=== PATIENT | female | born 1985 | race Caucasian/White ===

== ENCOUNTER 2023-03-16 13:28 | Emergency (ER) | payer MEDICARE, SELFPAY ==
[2023-03-16 13:39] VITALS: BP 131/91
--- NOTE | 2023-03-16 16:02 | ED.GENMED ---
History of Present Illness
General
Chief Complaint: Alcohol Problem
Source: patient
Exam Limitations: none
Time Seen by Provider: 03/16/23 15:40
Travel History
Have you had any contact with someone who has COVID-19?: No
Do you have any symptoms of coronavirus? Fever > 100 degrees, chills, cough, shortness of breath, sore throat, loss of taste or smell, muscle aches, or headache?: No
History of Present Illness
History of Present Illness:
37-year-old female presents with request of getting help getting set up with alcohol rehab. She drinks beer daily. She states she has large amount of alcohol on a daily basis. She denies any other drug use. She denies thoughts of harming
herself. She does states she is homeless currently. No other complaints at this time
Past History
Past History
ED Past Medical History: Psychiatric (IVDA, on Suboxone)
ED Past Surgical History: Tonsilectomy
Social History
Tobacco: Smoker
Alcohol: None
Drug: Marijuana
Personal: Single
Living: alone
Employment: Employed
Phy Exam
Physical Exam
Physical Exam:
General: Well-appearing female no acute respiratory distress
HEENT: Normocephalic atraumatic neck is supple
Heart: Regular rate and rhythm no murmurs
Lungs: Clear to auscultation bilaterally no wheezing
Extremities: No cyanosis or edema
Scores
Withdrawal Assessment of Alcohol
Withdrawal Assessment Completed?: No
Course
Orders/Labs/Results
Orders:
Orders
03/16/23 16:37
Complete Blood Count/With Diff Urgent
Comprehensive Metabolic Panel Urgent
03/16/23 19:12
Fentanyl, Urine Urgent
Urine Drug Abuse Screen Urgent
Date Specimen was Collected: 03/16/23
Time Specimen was Collected: 16:46
Abnormal Lab Results
03/16/23 03/16/23
16:37 19:12
MCH 32.4 H pg
(27.0-31.0)
Abs Immat Gran (auto) 0.1 H 10^3/uL
(0-0.05)
Absolute Neuts (auto) 7.1 H 10^3/uL
(1.4-6.5)
Absolute Monos (auto) 0.9 H 10^3/uL
(0.1-0.6)
Immature Gran % 0.7 H %
(0-0.5)
AST 72 H U/L
(14-36)
ALT 115 H U/L
(0-35)
Ur Amphetamines Screen Positive H
(Negative)
U Marijuana (THC) Screen Positive H
(Negative)
03/16/23 16:37
03/16/23 16:37
Vital Signs
Initial and Last Documented VS:
Initial Vital Signs
Temp Pulse Resp BP Pulse Ox
98.6 F 90 18 131/91 98
03/16/23 13:39 03/16/23 13:39 03/16/23 13:39 03/16/23 13:39 03/16/23 13:39
Last Documented Vital Signs
Temp Pulse Resp BP Pulse Ox
99.3 F 100 16 129/85 97
03/16/23 16:25 03/16/23 19:12 03/16/23 19:12 03/16/23 19:12 03/16/23 19:12
*Critical Care Note
Total Time (30-74mins, 75-104mins- exclusive of procedures): Not Applicable
Update Note
Update Note:
Patient requesting evaluation for alcohol rehab. She is never withdrawn from alcohol in the past. She has attended alcohol rehab inpatient and outpatient in the past. Patient labs pending will check drug screen. [facility] contacted
ED Attending Note
-
Portions of this chart may have been created with voice recognition software.� Occasional wrong word or��sound alike� substitutions may have occurred due to the inherent limitations of voice recognition software.
Discharge Plan
Departure
Patient Disposition: Acute Rehab Facility
Date of Disposition: 03/16/23
Time of Disposition: 18:12
Discharge Problem:
Alcohol abuse
Instructions: Alcohol Use Disorder (DC)
Prescriptions:
No Action
penicillin V potassium 250 MG tablet
500 mg PO Q12 13 Days Qty: 26 0RF
sulfamethoxazole-trimethoprim 1 TABLET tablet
1 tab PO BID 13 Days Qty: 26 0RF
nicotine 14 MG patch 24 hour
14 mg transdermal DAILY 30 Days Qty: 30 0RF
methylprednisolone [Medrol (John)] 4 MG tablets,dose pack
4 tab PO . DIRECT Qty: 1 0RF
gabapentin 100 MG capsule
100 mg PO TID Qty: 30 0RF
cyclobenzaprine 10 MG tablet
10 mg PO HS Qty: 10 0RF
Referrals:
NONE,* [Family Provider] -
Activity Restrictions/Additional Instructions:
Please seek further treatment per rehab facility
Interventions
Interventions:
*Risk Screen - Suicide Last Done: 03/16/23 16:18
*General Assessment Last Done: 03/16/23 16:18
*Neglect/Abuse Screening Last Done: 03/16/23 16:18
ED- Fall Risk Assessment Last Done: 03/16/23 21:14
*ED COVID-19 Vaccine History Last Done: 03/16/23 16:18
*Nursing Disposition Last Done: 03/16/23 22:22
ED- Neurological Assessment Last Done: 03/16/23 16:18
ED-Psychological Assessment Last Done: 03/16/23 16:18
Discharge Date and Time
Discharge Date/Time: 03/16/23 22:00
[2023-03-16 16:18] VITALS: BMI 36.3
[2023-03-16 16:25] VITALS: BP 99/67
[2023-03-16 17:09] LABS: % Basophils 0.4 % (0-2); % Eosinophils 0.7 % (0-6); % Immature Granulocytes 0.7 % (0-0.5); % Lymphocytes 23.3 % (20.5-51.1); % Monocytes 8.4 % (1.7-9.3); % Neutrophils 66.5 % (42.2-75.2); Absolute Eosinophils 0.1 10^3/uL (0-0.7); Absolute Immature Granulocytes 0.1 10^3/uL (0-0.05); Absolute Lymphocytes 2.5 10^3/uL (1.2-3.4); Absolute Monocytes 0.9 10^3/uL (0.1-0.6); Absolute Neutrophils 7.1 10^3/uL (1.4-6.5); Hematocrit 45.5 % (37.0-47.0); Hemoglobin 15.4 g/dL (12.0-16.0); Mean Corp Hgb Conc. 33.8 g/dL (33.0-37.0); Mean Corpuscular Hgb 32.4 pg (27.0-31.0); Mean Corpuscular Volume 95.8 fL (81.0-99.0); Mean Platelet Volume 10.1 fL (7.4-10.4); Nucleated Red Blood Cells % 0 %; Platelet Count 199 10^3/uL (130-400); Red Blood Cell Count 4.75 10^6/uL (4.20-5.40); Red Cell Dist. Width 14.1 % (11.5-14.5); White Blood Cell Count 10.8 10^3/uL (4.8-10.8)
[2023-03-16 17:19] LABS: ALT (SGPT) 115 U/L (0-35); AST (SGOT) 72 U/L (14-36); Albumin 3.7 g/dl (3.5-5.0); Alkaline Phosphatase 76 U/L (38-126); Blood Urea Nitrogen 15 mg/dl (7-17); Calcium 8.8 mg/dl (8.4-10.2); Carbon Dioxide 22 mmol/L (22-30); Chloride 107 mmol/L (98-107); Estimated Creatinine Clearance > 125 ml/min; Glucose 83 mg/dl (70-99); Potassium 4.7 mmol/L (3.5-5.1); Sodium 137 mmol/L (135-145); Total Bilirubin 0.8 mg/dl (0.2-1.3); Total Protein 6.9 g/dl (6.3-8.2); eGFR > 60.00
[2023-03-16 19:12] VITALS: BP 129/85
[2023-03-16 19:40] LABS: Amphetamines Positive (Negative); Barbiturates Negative (Negative); Benzodiazepines Negative (Negative); Buprenorphine Negative (Negative); Cocaine Negative (Negative); Marijuana Positive (Negative); Methadone Negative (Negative); Methamphetamines Negative (Negative); Opiates Negative (Negative); Phencyclidine Negative (Negative); Tricyclic Antidepressants Negative (Negative)
[2023-03-16 19:53] LABS: Fentanyl, Urine Negative (Negative)
== END 2023-03-16 22:00 ==
LOC: EMR 13:28
PROVIDERS: Physician Assistant; EMERGENCY PHYSICIAN Emergency Medicine
DX: F10.10 Alcohol abuse, uncomplicated (principal); F17.200 Nicotine dependence, unspecified, uncomplicated; Z59.00 Homelessness unspecified
CPT/HCPCS: 99283; 80053; 80306; 80307; 85025